=== PATIENT | male | born 1965 | race African-American/Black ===

== ENCOUNTER 2016-10-29 11:31 | Emergency (ER) | payer MEDICARE, MEDICAID ==
[2016-10-29] MEDS ORDERED: Acetaminophen 325 MG TAB ONE (11:47)
[2016-10-29 12:40] LABS: ALT (SGPT) 7 U/L (8-55); AST (SGOT) 18 U/L (5-34); Alkaline Phosphatase 72 U/L (40-150); Anion Gap 19 mmol/L (10-20); BUN (Urea Nitrogen) 29 mg/dL (8.4-25.7); Calc. Creatinine Clearance 0 mL/min (70-130); Calcium 9.3 mg/dL (7.8-10.44); Carbon Dioxide 30 mmol/L (22-29); Chloride 95 mmol/L (98-107); Estimated GFR-MDRD 6; Globulin 4.6 g/dL (2.4-3.5); Glucose 71 mg/dL (70-105); Protein, Total 8.6 g/dL (6.0-8.3); Sodium 140 mmol/L (136-145)
[2016-10-29 12:48] LABS: Anisocytosis SLIGHT = 6-15 cells (100X) (0-5/hpf); Band 1 % (5-11); Lymphocytes 7 % (21-51); MDiff Complete? YES; Monocytes 8 % (0-10); Neutrophil 84 % (42-75)
[2016-10-29 12:53] LABS: Hemoglobin 11.8 g/dL (14.0-18.0); Mean Corpuscular HGB CONC 32.8 g/dL (32.0-36.0); Mean Corpuscular Hemoglobin 32.7 pg (27.0-31.0); Mean Corpuscular Volume 99.7 fL (80.0-94.0); Platelet Count 205 thou/uL (130-400); Red Blood Cell (RBC) Count 3.59 mill/uL (4.70-6.10); White Blood Cell (WBC) Count 24.3 thou/uL (4.8-10.8)
[2016-10-29] MEDS ORDERED: Ondansetron HCl/PF 4 MG/2 ML Vial ONE (13:01)
[2016-10-29] MEDS ORDERED: Clindamycin/D5W 600 mg/50 ml Premix Bag ONE (13:22)
--- NOTE | 2016-10-29 21:55 | RAD ---
RIGHT FOOT THREE VIEWS 10/29/16 Comparison is made with the 08/27/15 study. In the interval, there has been resection of the third metatarsal head and also resection of a porti on of the proximal phalanx of the great toe near the first MTP joint. Soft tissue swelling is seen lateral to the first MTP joint. There may be a small lucency in the fir st metatarsal head. Further studies, such as MRI may be needed to evaluate it. Bony infection is not ruled out at this point. Dense calcification of vessels in the foot and ankle were apparent. IMPRESSION: 1. Soft tissue swelling around the first MTP joint with an ovoid lucency seen in the first meta tarsal head, a new finding. Further workup indicated. 2. Status post resection of the third metatarsal head and base of the proximal phalanx of the g reat toe. POS: HOME
== END 2016-10-29 13:52 | disposition short-term general hospital (02) ==
LOC: BURERS 11:31
DX: L03.115 Cellulitis of right lower limb (principal); I12.9 Hypertensive chronic kidney disease with stage 1 through stage 4 chronic kidney disease, or unspecified chronic kidney disease; N18.9 Chronic kidney disease, unspecified; F32.9 Major depressive disorder, single episode, unspecified; E11.9 Type 2 diabetes mellitus without complications; Z87.891 Personal history of nicotine dependence
CPT/HCPCS: 36415; 80053; 85025; 87040; 87081; 87430; 96374; 96375; J2405; J3490

== ENCOUNTER 2016-12-25 23:26 | Emergency (ER) | payer MEDICARE, MEDICAID ==
[2016-12-26 00:57] LABS: #Basophils 0.1 thou/uL (0.0-0.2); #Eosinphils 0.3 thou/uL (0.0-0.7); #Monocytes 0.7 thou/uL (0.11-0.59); #Neutrophils 4.6 thou/uL (1.40-6.50); %Basophils 1.2 % (0.0-1.0); %Eosinophils 3.4 % (0.0-10.0); %Lymphocytes 26.8 % (21.0-51.0); %Monocytes 8.7 % (0.0-10.0); %Neutrophils 59.9 % (42.0-75.0); Hemoglobin 10.9 g/dL (14.0-18.0); Mean Corpuscular Hemoglobin 32.8 pg (27.0-31.0); Mean Corpuscular Volume 96.5 fl (80.0-94.0); Mean Platelet Volume 6.3 fL (7.4-10.4); Platelet Count 230 thou/uL (130-400); RBC Distribution Width 15.5 % (11.5-14.5); Red Blood Cell (RBC) Count 3.31 mill/uL (4.70-6.10); White Blood Cell (WBC) Count 7.6 thou/uL (4.8-10.8)
[2016-12-26 01:05] LABS: Anion Gap 19 mmol/L (10-20); BUN (Urea Nitrogen) 31 mg/dL (8.4-25.7); Calc. Creatinine Clearance 0 mL/min (70-130); Carbon Dioxide 30 mmol/L (22-29); Chloride 95 mmol/L (98-107); Estimated GFR-MDRD 7; Glucose 145 mg/dL (70-105); Potassium 3.7 mmol/L (3.5-5.1); Sodium 140 mmol/L (136-145)
[2016-12-26 01:11] LABS: CKMB 2.7 ng/mL (0-6.6); Troponin I 0.047 ng/mL (< 0.028)
[2016-12-26] MEDS ORDERED: AMOXicillin 250 MG CAP ONE (01:23)
[2016-12-26] MEDS ORDERED: HYDROcodone/Acetaminophen 5/325 mg Tablet ONE (01:26)
--- NOTE | 2016-12-26 07:32 | RAD ---
PORTABLE CHEST: Date: 12/26/16 An AP portable film at 0016 hours is compared with a 11/23/16 study. FINDINGS: The heart is borderline in size. There are no congestive changes or pleural effusions. The lungs are clear today. There are no infiltrative changes in the bases as before. The trachea is midline. Medi an sternotomy sutures are noted. A trace of calcification is seen in the aortic arch. IMPRESSION: No acute thoracic finding. POS: HOME
== END 2016-12-26 01:35 | disposition home or self-care (01) ==
LOC: BURERS 23:26
DX: H60.92 Unspecified otitis externa, left ear (principal); I10 Essential (primary) hypertension; E11.9 Type 2 diabetes mellitus without complications; F32.9 Major depressive disorder, single episode, unspecified; Z87.891 Personal history of nicotine dependence
CPT/HCPCS: 36416; 71010; 80048; 82553; 84484; 85025; 93005

== ENCOUNTER 2017-06-28 15:31 | Emergency (ER) | payer MEDICARE, MEDICAID ==
[2017-06-28 16:28] LABS: #Basophils 0.1 thou/uL (0.0-0.2); #Eosinphils 0.1 thou/uL (0.0-0.7); #Lymphocytes 1.4 thou/uL (1.20-3.40); #Monocytes 0.7 thou/uL (0.11-0.59); #Neutrophils 7.5 thou/uL (1.40-6.50); %Basophils 0.9 % (0.0-1.0); %Eosinophils 1.4 % (0.0-10.0); %Lymphocytes 14.2 % (21.0-51.0); %Monocytes 7.1 % (0.0-10.0); %Neutrophils 76.5 % (42.0-75.0); Mean Corpuscular HGB CONC 32.5 g/dL (32.0-36.0); Mean Corpuscular Hemoglobin 31.3 pg (27.0-31.0); Mean Corpuscular Volume 96.4 fl (80.0-94.0); Mean Platelet Volume 6.4 fL (7.4-10.4); Platelet Count 141 thou/uL (130-400); RBC Distribution Width 16.5 % (11.5-14.5); Red Blood Cell (RBC) Count 4.14 mill/uL (4.70-6.10); White Blood Cell (WBC) Count 9.8 thou/uL (4.8-10.8)
[2017-06-28] MEDS ORDERED: Ondansetron ODT 4 MG TAB ONE (16:29)
[2017-06-28 16:39] LABS: ALT (SGPT) Less than 7 U/L (8-55); AST (SGOT) 14 U/L (5-34); Albumin 4.2 g/dL (3.5-5.0); Alkaline Phosphatase 91 U/L (40-150); Anion Gap 25 mmol/L (10-20); BUN (Urea Nitrogen) 42 mg/dL (8.4-25.7); Bilirubin, Total 0.6 mg/dL (0.2-1.2); Calc. Creatinine Clearance 0 mL/min (70-130); Calcium 9.7 mg/dL (7.8-10.44); Carbon Dioxide 25 mmol/L (22-29); Chloride 97 mmol/L (98-107); Estimated GFR-MDRD 5; Globulin 4.2 g/dL (2.4-3.5); Glucose 91 mg/dL (70-105); Potassium 3.7 mmol/L (3.5-5.1); Protein, Total 8.4 g/dL (6.0-8.3); Sodium 143 mmol/L (136-145)
[2017-06-28 16:41] LABS: CKMB 2.9 ng/mL (0-6.6); Troponin I 0.077 ng/mL (< 0.028)
[2017-06-28] MEDS ORDERED: Piperacillin/Tazobactam 3.375 GM VIAL ONE (16:56)
[2017-06-28] MEDS ORDERED: Metoprolol Tartrate 5 MG/5 ML VIAL ONE ×2 (16:56→17:16)
[2017-06-28] MEDS ORDERED: Sodium Chloride 0.9% 100 ML ONE (16:57)
[2017-06-28] MEDS ORDERED: Ondansetron HCl/PF 4 MG/2 ML Vial ONE (17:48)
--- NOTE | 2017-06-28 23:32 | RAD ---
PORTABLE CHEST: Date: 06-28-17 An AP lateral film performed at 1604 is compared to the 12-26-16 study. FINDINGS: A multi-lumen large bore catheter is inserted via the right subclavian route. Its tip is in the right atrium. Mild cardiomegaly is present but there is no congestive change. No edema, pleural fluid, or focal pulmonary infiltrate was seen. There is no current sign of pneumonia. IMPRESSION: Cardiomegaly but no acute findings. POS: HOME
--- NOTE | 2017-06-28 23:45 | RAD ---
RIGHT FOOT THREE VIEWS: Date: 06-28-17 Comparison: 10-29-16 FINDINGS: The third metatarsal head has been previously resected. The space between the end of the third metata rsal and the proximal phalanx of the third toe is less today, but the bones on each side of it were u nremarkable in appearance. Previously, one saw a resection of the proximal portion of the proximal ph alanx of the great toe. The first metatarsal head was relatively smooth. Today, the first metatarsal head is quite irregular. There has been either resorption of the proximal end of the proximal phalanx since previously, or further surgery in the interim. At any rate, the joint between the first metata rsal head and proximal phalanx of the great toe is considerably more irregular today with prominent i rregularity of the first metatarsal head. Unless there was surgery done on this area between now and the 10-29-16 study, the possibility of infection should be raised. Arterial calcifications are present as usual. IMPRESSION: Marked irregularity of the remaining joints between the first metatarsal head and proximal phalanx of the great toe. The metatarsal head is quite irregular. See above. Code T POS: HOME
== END 2017-06-28 18:08 | disposition short-term general hospital (02) ==
LOC: BURERS 15:31
DX: M86.9 Osteomyelitis, unspecified (principal); R79.89 Other specified abnormal findings of blood chemistry; I10 Essential (primary) hypertension; E11.9 Type 2 diabetes mellitus without complications; F17.210 Nicotine dependence, cigarettes, uncomplicated; Z79.82 Long term (current) use of aspirin; Z79.4 Long term (current) use of insulin; Z79.899 Other long term (current) drug therapy
CPT/HCPCS: 71045; 80053; 82553; 83605; 84484; 85025; 87040; 87070; 87205; 93005; 94760; 96365; 96375; J2405; J2543; J3370; J7050; Q0162